=== PATIENT | male | born 1950 | race Caucasian/White ===

== ENCOUNTER → 2022-01-26 14:18 | Outpatient (BNVA) | payer OTHER, SELFPAY | PROVIDERS: PCP Internal Medicine; Visit Provider Urology | DX: N48.1 Balanitis (principal); R97.20 Elevated prostate specific antigen [PSA] | CPT/HCPCS: 99202 ==

== ENCOUNTER → 2022-04-26 09:48 | Outpatient (BNVA) | payer OTHER, SELFPAY | PROVIDERS: PCP Internal Medicine; Visit Provider Urology | DX: N40.1 Benign prostatic hyperplasia with lower urinary tract symptoms (principal); N13.8 Other obstructive and reflux uropathy; C61 Malignant neoplasm of prostate; N48.1 Balanitis; R97.20 Elevated prostate specific antigen [PSA]; N52.9 Male erectile dysfunction, unspecified | CPT/HCPCS: 51798; 99212 ==

== ENCOUNTER 2022-07-03 13:13 | Outpatient (REF) | payer OTHER, SELFPAY ==
[2022-07-03 15:32] LABS: PSA,Total (Free>4and<10) 63.65 ng/mL (0.00-4.00)
[2022-07-05 12:21] LABS: Free Prostate Spec Ag 5.2 ng/mL; Percent Free Prostate Spec Ag NOT CALCULATED % (calc) (>25); Prostate Specific Ag Total 57.5 ng/mL (< OR = 4.0)
== END 2022-07-03 13:14 | disposition home or self-care (01) ==
LOC: HO.LAB 13:13
PROVIDERS: Visit Provider Urology
DX: Z12.5 Encounter for screening for malignant neoplasm of prostate (principal); C61 Malignant neoplasm of prostate
CPT/HCPCS: 36415; 84153; 84154

== ENCOUNTER → 2022-07-10 10:57 | Outpatient (BNVA) | payer OTHER, SELFPAY | PROVIDERS: PCP Internal Medicine; Visit Provider Urology | DX: C61 Malignant neoplasm of prostate (principal); N48.1 Balanitis; N52.9 Male erectile dysfunction, unspecified | CPT/HCPCS: 99212 ==

== ENCOUNTER 2024-01-28 05:44 | Emergency (ER) | payer OTHER, SELFPAY ==
[2024-01-28] VITALS (7 sets, daily range): BP systolic 131–149; BP diastolic 71–82; PULSE 57–78; RESP 16–20; TEMP 36.4–37.1; O2SAT 98–99; BMI 30.8
--- NOTE | ~2024-01-28 | XR_ITS ---
EXAMINATION: XR ABDOMEN KUB CLINICAL INDICATION: No bowel movement COMPARISON: None available. TECHNIQUE: AP view of the abdomen. FINDINGS: No significant fecal retention nor air-fluid small bowel loops seen. Solid visceral outlines are obscured. Tiny calcification left mid abdomen possibly renal in location. Phleboliths. Mild lumbar dextroscoliosis and degenerative changes lower lumbar spine. Symphysis pubis sclerosis, asymmetric sclerosis superior pubic ramus and question mild expansion and increased trabecular pattern bilateral inferior and superior pubic rami. XR/XR KUB IMPRESSION: No radiographic evidence of obstruction. Patient scheduled for abdomen and pelvic CT. Bony findings in the evaluated at that time.
--- NOTE | ~2024-01-28 | CT_ITS ---
EXAMINATION: CT ABDOMEN AND PELVIS WITH CONTRAST CLINICAL INFORMATION: Abdominal pain, question obstruction COMPARISON: KUB earlier in the day TECHNIQUE: Multidetector volumetric images were obtained from the superior aspect of the liver through the pubic symphysis following administration 85 mL of Omnipaque 350 intravenous contrast. Sagittal and coronal reformatted images were obtained on the technologist's workstation. Oral contrast: Yes This CT examination was performed using dose optimization techniques as appropriate, variously including the following: *Automated exposure control *Adjustment of mA and/or kV according to patient size (this includes techniques or standardized protocols for targeted exams where dose is matched to indication/reason for exam; i.e. extremities or head) *Use of iterative reconstruction technique DLP: 671 mGy-cm FINDINGS: SENIOR APPLICATIONS ARCHITECT: Nonspecific bowel pattern. LUNG BASES: The visualized lung bases are unremarkable. LIVER, GALLBLADDER, AND BILIARY TREE: The liver is normal in size, shape, and attenuation. No focal hepatic lesion or biliary ductal dilatation is present. The gallbladder contains 2-3 mm hyperdensity adjacent to the wall, 3:19, possible polyp. No evidence of calcified gallstones, gallbladder wall thickening, or obvious pericholecystic inflammatory changes. PANCREAS: Unremarkable. SPLEEN: Unremarkable. ADRENAL GLANDS: Unremarkable. KIDNEYS AND URETERS: The kidneys are normal in size, shape, and attenuation. No hydronephrosis or hydroureter. 1.1 cm left lower pole renal cyst. 2 mm possible left lower pole renal calculus versus vascular calcification. No perinephric stranding. BLADDER: Moderately distended. Lobulated filling defects inferior aspect of the urinary bladder appear to be in continuity with calcification containing prostate. Superior bladder diverticulum. GASTROINTESTINAL TRACT: The esophagus, small hiatal moderately distended stomach. Fundal gastric wall thickening not excluded. Nonobstructive bowel pattern. Unremarkable terminal ileum. Cecum is distended containing contrast and fecal material. Appendix not seen. Redundant sigmoid colon. Limited evaluation of the rectum/anus without oral contrast transit. ABDOMINAL WALL: Umbilical and bilateral fat filled inguinal hernias. LYMPH NODES: Pathologically enlarged retroperitoneal lymph nodes, largest on the left measuring 3.1 cm, on the right, 0.9 cm. Pathologic lymphadenopathy extends into bilateral iliac regions, measuring 2.9 cm on the right and approximately 2.9 cm on the left. VASCULAR: Atherosclerotic calcifications nonaneurysmal aorta and iliac arteries. Unremarkable inferior vena cava. External iliac veins are patent and nondistended, common iliac veins are not well evaluated due to retroperitoneal adenopathy. Portal system. PELVIC VISCERA: Unremarkable. OSSEOUS STRUCTURES: Degenerative changes with multilevel spurring. Inferior endplate irregularity of T11 with disc space narrowing. Symphysis pubis sclerosis. Mixed lytic and sclerotic process primarily involving the iliac bones and left superior pubic ramus. The cortical margins are irregular, CC image 3:80 and 3:57. CT/CT abdomen pelvis w IV con IMPRESSION: Pathologic retroperitoneal lymphadenopathy. Mixed lucent and sclerotic bony findings in the bilateral iliac bones and left superior pubic ramus, possibly Paget's disease, but metastatic disease not excluded. Possible gallbladder polyp. Inferior bladder wall soft tissue density, may be indenting lobulated prostate but bladder lesion(s) not excluded. Left renal cyst and possible 2 to 3 mm nonobstructing left inferior pole renal calculus. No CT evidence of bowel obstruction as clinically questioned. Fleischner guidelines were followed.
--- NOTE | ~2024-01-28 | CT_ITS ---
EXAMINATION: CT cervical spine wo IV con, CT head/brain wo IV con CLINICAL INFORMATION: Reason for Exam paresthesias, possible cancer mets COMPARISON: CT abdomen pelvis 01/28/2024. Prostate MRI 03/15/2022 TECHNIQUE: Unenhanced CT of the head with multiple coronal and set her reformatted images; unenhanced CT of the cervical spine with multiple coronal and sagittal reformatted images. Intravenous Contrast: None administered This CT examination was performed using dose optimization techniques as appropriate, variously including the following: *Automated exposure control *Adjustment of mA and/or kV according to patient size (this includes techniques or standardized protocols for targeted exams where dose is matched to indication/reason for exam; i.e. extremities or head) *Use of iterative reconstruction technique DLP: 1134 mGy-cm FINDINGS: CT head: Moderate diffuse commensurate prominence of ventricles and sulci is noted. No intracranial hemorrhage, tumors or acute infarcts visualized. Minimal scattered subcortical and periventricular white matter patchy hypodensities are visualized. Segmental calcific atherosclerotic plaques are present in the cavernous portions of the internal carotid arteries and focal calcific plaques are present in the intradural segments of the vertebral arteries. The orbits and globes are normal in appearance. No significant opacification of the visualized paranasal sinuses, mastoid air cells and middle ear cavities. Making allowances for expected lucencies related to emissary veins and venous occlusions, no suspicious osseous lesions are noted. Residual IV contrast agent is noted as manifest by hyperdense blood pool. CT cervical spine: The left foramen is of the mandible is partially included in the image [id number] and demonstrates vague scattered areas of cortical dehiscence and heterogeneous trabecular rarefaction. (For example see series 11 image 144). No extraosseous soft tissue lesion is noted in this region. This region measures approximately 0.5 cm in maximum AP extent. No cervical fractures or acute appearing subluxations identified. C2-C3: Moderate left foraminal stenosis secondary to marked left facet hypertrophy. C3-C4: Marked left foraminal stenosis secondary to uncovertebral joint and left facet hypertrophic changes in the setting of a partially visualized broad-based disc and osteophyte complex. C4-C5: Marked right foraminal stenosis and moderate left foraminal stenosis secondary to 3 mm degenerative anterolisthesis the setting of marked vertebral disc space narrowing and partially visualized bilateral uncovertebral joint disc-osteophyte complexes. C5-C6: Moderate-marked left foraminal stenosis. Moderate central stenosis. Findings arise in the setting of a broad-based disc-osteophyte complex with left intraforaminal eccentricity in association with mild bilateral facet hypertrophic changes. C6-C7: Moderate-marked left foraminal stenosis, moderate central stenosis, moderate right foraminal stenosis. Findings are noted in the setting of a partially visualized broad-based disc-osteophyte complex and asymmetric prominence of osteophytosis of the left uncovertebral joint. C7-T1: No gross central or foraminal stenoses. CT/CT cervical spine wo IV con IMPRESSION: CT HEAD: 1. No acute intracranial abnormalities. 2. Minimal white matter chronic small vessel ischemic changes. 3. No evidence of metastatic disease. CT CERVICAL SPINE: 1. No acute abnormalities. 2. Indeterminate 5 mm cortical and medullary lucency along the lateral aspect of the left mandibular ramus. This finding is too small to specifically characterize but could represent a small metastatic focus. (For example see series 11 image 144). Given the suspicion of osseous metastatic disease noted on the comparison CT of abdomen pelvis, consider further evaluation with whole body skeletal scintigraphy. Elsewhere within the cervical spine, no findings suspicious for skeletal metastatic disease. 3. Advanced multilevel chronic spondylosis of the cervical spine as detailed above.
--- NOTE | 2024-01-28 06:57 | ED.GENADULT ---
HPI - General Adult General Chief complaint: Abdominal Pain Stated complaint: unable to defecate, sent by [facility] admin Time Seen by Provider: 01/28/24 06:36 Source: patient and other (significant other) Mode of arrival: ambulatory Limitations: no limitations History of Present Illness ED Provider: Indy Rose PA-C HPI narrative: Patient is a 73 year old assigned male at with a history of prostate cancer, for which he has had no treatment, presenting to the emergency department today with abdominal pain, nausea, and constipation. Patient states that over the last week he has not been able to have a bowel movement. Patient states that he is now having diffuse abdominal pain and nausea. Patient denies any dizziness, lightheadedness, vomiting, fever, chills, blurry vision, double vision, loss of vision, chest pain, difficulty breathing, shortness of breath, back pain, night sweats, pain with urination, increased urinary frequency, increased urinary urgency, blood in his urine or stool, syncope or a near syncopal episode, recent trauma or falls, bowel incontinence, bladder incontinence, bladder retention, or any other complaints at this time. Onset (ago): week(s) (1) Location: abdomen Radiation: non-radiation Severity: mild Severity scale (1-10): 4 Quality: aching and dull Pain Consistency: constant Relieving factors: none Exacerbating factors: none Associated symptoms: nausea/vomiting Treatments prior to arrival: none Related Data Home Medications ?Medication ?Instructions ?Recorded ?Confirmed amoxicillin 500 mg capsule 500 mg PO TID 01/26/22 07/10/22 atorvastatin 10 mg tablet 10 mg PO DAILY 01/26/22 07/10/22 metronidazole 0.75 % topical gel 1 appl topical BEDTIME 01/26/22 07/10/22 hydroxyzine pamoate 25 mg capsule 25 mg PO BID 07/09/22 07/10/22 Previous Rx's ?Medication ?Instructions ?Recorded mupirocin 2 % ointment topical kit 1 appl topical DAILY 21 days #1 ea 01/26/22 betamethasone dipropionate 0.05 % 1 appl topical BID #45 grams 01/30/22 topical ointment finasteride 5 mg tablet 5 mg PO DAILY 90 days #90 tabs 04/26/22 sildenafil 100 mg tablet 100 mg PO DAILY PRN sexual 04/26/22 activity 90 days #12 tabs bicalutamide 50 mg tablet 50 mg PO DAILY 90 days #90 tabs 07/10/22 naproxen 500 mg tablet (Naprosyn) 500 mg PO Q12H PRN pain 30 days 07/10/22 #60 tabs tacrolimus 0.1 % topical ointment 1 appl topical DAILY 28 days #30 07/10/22 grams Allergies Allergy/AdvReac Type Severity Reaction Status Date / Time No Known Allergies Allergy Verified 01/28/24 05:54 Review of Systems Constitutional: Constitutional: Reports no additional constitutional complaints, Denies chills, Denies fever(s) and Denies night sweats Eyes: Eyes: Reports no additional eye complaints, Denies blurry vision, Denies change in vision, Denies diplopia, Denies eye discharge, Denies loss of vision and Denies eye pain ENT: Denies dizziness Cardiovascular: Cardiovascular: Reports no additional cardiovascular complaints, Denies chest pain, Denies lightheadedness, Denies Loss of Consciousness and Denies dyspnea Respiratory: Respiratory: Reports no additional respiratory complaints and Denies dyspnea Gastrointestinal: Gastrointestinal: Reports no additional gastrointestinal complaints, Reports abdominal pain, Denies melena, Denies hematochezia, Reports change in bowel habits, Denies change in stool character, Reports constipation, Reports nausea and Denies vomiting Genitourinary: Genitourinary: Reports no additional male genitourinary complaints, Denies hematuria, Denies oliguria, Denies difficulty urinating, Denies dysuria, Denies urinary frequency, Denies urinary hesitancy, Denies urinary incontinence and Denies urinary urgency Musculoskeletal: Musculoskeletal: Reports no additional musculoskeletal complaints, Denies numbness and Denies tingling Neurologic: Denies dizziness, Denies loss of vision, Denies numbness and Denies tingling Psychiatric: Psychiatric: Reports no additional psychiatric complaints Endocrine: Endocrine: Reports no additional endocrine complaints Hematologic/Lymphatic: Hematologic/Lymphatic: Reports no additional hematologic/lymphatic complaints Allergic/Immunologic: Allergic/Immunologic: Reports no additional allergic/immunologic complaints PMFSH Past Medical History Attestation statement: The following information was validated with the patient. Source: old records reviewed and nursing notes reviewed Medical History Elevated PSA Scrotal abscess Balanitis Physical Exam ED Vital Signs: Vital Signs - 24 hr 01/28/24 05:53 01/28/24 08:00 01/28/24 10:00 Temperature 97.7 F 97.6 F 98.8 F Pulse Rate 78 64 57 Respiratory Rate 16 16 16 Blood Pressure 149/82 H 132/75 131/71 Pulse Oximetry 98 98 99 Oxygen Delivery Method Room Air Room Air Room Air 01/28/24 12:49 01/28/24 14:00 Temperature 97.6 F 97.6 F Pulse Rate 63 61 Respiratory Rate 16 16 Blood Pressure 143/78 H 147/76 H Pulse Oximetry 98 98 Oxygen Delivery Method Room Air Room Air BMI result Body Mass Index 30.8 Const General: cooperative, no acute distress, alert and awake Nutritional Appearance: well nourished Orientation/consciousness: patient oriented x3 Limitations: no limitations HENMT Head: Yes normal to inspection and Yes atraumatic Ears: hearing grossly normal bilaterally and external ears normal General nose exam: Normal external nose present, no nasal discharge noted and no epistaxis Face and sinus: Yes normal facial exam, No abrasion and No laceration Mouth: Normal oral and palatal mucosa present, no drooling and no muffled voice Eyes General: appearance normal, both eyes and all related structures Periorbital: periorbital findings normal Eyelids: Yes eyelids normal Conjunctivae: conjunctivae normal Pupils: Equal, round and reactive pupils present EOM: EOMs intact bilaterally Neck Neck: Yes normal visual inspection, Yes full ROM and Yes no lymphadenopathy Chest Chest palpation & inspection: normal inspection of the chest Resp Effort & Inspection: normal respiratory effort and able to speak in complete sentences GI Inspection: Yes normal to inspection Palpation (GI): Soft to palpation, Firmness to palpation present (GI) (mildly), Tenderness to palpation present (GI) (diffuse), no guarding and not rigid Neuro General: patient oriented x3 and moves all extremities Cranial nerves: Yes Equal, round and reactive pupils present Cognition (Neuro): normal cognition Motor exam (neuro): 5/5 motor strength present throughout Sensory Exam: Normal double simultaneous stimulation for sensation Coordination: [id number] test normal Extrem General: Yes normal to inspection, Yes full ROM and Yes capillary refill normal Psych Appearance: grossly normal Mental Status: mental status grossly normal Affect: normal affect Attitude: cooperative Thought process: Normal thought process present Thought content: Normal thought content present Insight: Good insight present (Psych) Medications Administered Discontinued Medications Generic Name Dose Route Start Last Admin Trade Name Harper PRN Reason Stop Dose Admin Barium Sulfate 900 ml 01/28/24 09:24 01/28/24 09:25 Barium Sulfate Oral (Mocha) 450 Ml Oral.Susp PO 01/28/24 09:25 900 ml ONCE ONE Administration Iohexol 100 ml 01/28/24 09:31 01/28/24 09:31 Iohexol 350 Mg/Ml 100 Ml Infus..Btl IV 01/28/24 09:32 85 ml ONCE ONE Administration Ketorolac Tromethamine 15 mg 01/28/24 14:34 01/28/24 14:48 Ketorolac Tromethamine 15 Mg/Ml Vial IVPUSH 01/28/24 14:35 15 mg ONCE ONE Administration Morphine Sulfate 2 mg 01/28/24 14:34 01/28/24 14:48 Morphine Sulfate 2 Mg/Ml Cartridge IVPUSH 01/28/24 14:35 2 mg ONCE ONE Administration Protocol Ondansetron HCl 4 mg 01/28/24 14:34 01/28/24 14:48 Ondansetron Hcl 4 Mg/2 Ml Vial IVPUSH 01/28/24 14:35 4 mg ONCE ONE Administration Medical Decision Making Medical Decision Making MDM Narrative: Patient is a 73 year old assigned male at with a history of prostate cancer for which he has not received any treatment, presenting to the emergency department today with abdominal pain, nausea, and perceived constipation. Patient's physical exam was as noted in the physical exam portion of this note. Patient's blood work was unremarkable. Patient's urine showed no acute process. Patient's EKG was unremarkable. Patient's KUB x-ray showed no acute process. Patient's CT abdomen/pelvis with PO and IV contrast showed a possible inferior bladder wall bladder lesion vs. 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 I explained my physical exam findings as well as all test results to the patient and the patient's significant other. I answered all questions asked by the patient and the patient's significant other. Patient initially stated that he didn't know about his prostate cancer. However, when reviewing previous notes from the urology group back in 2021, it was noted the patient was made aware of his cancer and refused to do any further testing or treatment at that time. When I asked the patient about this, he admitted that he was scared of getting a biopsy and so he ignored it. Patient's outside records further reflect the patient had been referred to a urologist multiple times and no called / no showed every appointment. The patient proceeded to state that he has been having paresthesias to his left lower lip and would like that to be evaluated. CT of the head and c-spine showed an indeterminate 5mm cortical and medullary lucency along the lateral aspect of the left mandibular ramus that could represent a metastatic focus. I explained these findings to the patient and the patient's significant other. Patient was adamant that he was constipated and would like an enema. I explained to the patient and the patient's significant other that his abdominal pain may be secondary to worsening prostate cancer and not constipation. The patient stated that he would like an enema anyway. Patient was given IV pain medication and an enema. Case management consulted on this case to [facility] and possible [facility] care given the patient's refusal to pursue definitive care for his prostate cancer. I attempted to contact the patient's PCP by phone, however, the clinic would not accept my call. I stressed the importance of the patient taking his medication as prescribed. I stressed the importance of the patient following up with his primary care provider and a urologist. I stressed the importance of the patient returning to the emergency department immediately if his symptoms were to worsen or if he were to develop any dizziness, shortness of breath, difficulty breathing, chest pain, blurry vision, loss of vision, nausea, vomiting, abdominal pain, fever, chills, back pain, or any other complaints. Patient and the patient's significant other verbalized agreement and understanding with this treatment plan and discharge. Differential Diagnosis Differential Diagnoses: The differential diagnosis associated with the presentation includes Metastatic prostate cancer Paresthesias Abdominal pain Constipation Bowel obstruction Admission/Observation Consideration of admission/observation: Escalation of care including admission/observation considered Patient would have been admitted to the hospital had his work up had any findings where hospital admission was appropriate and his clinical presentation warranted hospital admission. Lab Data [facility] Lab Attestation statement: I reviewed the patient's lab results. My interpretation of these results are in the [facility] Rationale portion of this note. 01/28/24 07:21 01/28/24 07:21 Labs: Lab Results 01/28/24 01/28/24 Range/Units 06:56 07:21 WBC 5.6 (4.8-10.8) X10*3/uL RBC 4.36 L (4.60-5.80) X10*6/uL Hgb 13.9 L (14.0-18.0) g/dl Hct 39.5 L (42.0-52.0) % MCV 90.6 (80.0-98.0) fL MCH 31.9 (27.0-33.0) pg MCHC 35.2 (31.0-36.0) g/dl RDW 12.6 (11.0-16.0) % Plt Count 168 (160-400) X10*3/uL MPV 8.5 L (9.4-12.4) fL Immature Gran % (Auto) 0.4 (0.0-0.4) % Neut % (Auto) 76.8 H (45-73) % Lymph % (Auto) 14.2 L (20-40) % [place] % (Auto) 6.5 (2-11) % Eos % (Auto) 1.6 (0-4) % Baso % (Auto) 0.5 (0-2) % Lymph # (Auto) 0.8 L (1.2-4.9) X10*3/uL [place] # (Auto) 0.4 (0.1-1.2) X10*3/uL Eos # (Auto) 0.1 (0.0-0.4) X10*3/uL Baso # (Auto) 0.0 (0.0-0.2) X10*3/uL Abs Immat Gran (auto) 0.02 (0.00-0.03) X10*3/uL Absolute Neuts (auto) 4.3 (2.0-8.3) x10*3/uL Absolute Nucleated RBC 0.000 (0.0-0.012) X10*3/uL Nucleated RBC % (auto) 0.0 (0.0-0.2) /100WBC Sodium 141 (135-145) mmol/L Potassium 4.6 (3.3-5.1) mmol/L Chloride 105 (96-108) mmol/L Carbon Dioxide 28 (22-29) mmol/L Anion Gap 13 (12-20) BUN 23 H (9-16) mg/dL Creatinine 0.85 (0.5-1.4) mg/dL Estim Creat Clear Calc 101.6 Estimated GFR > 60 Random Glucose 109 (60-115) mg/dL Calcium 9.7 (8.4-10.2) mg/dL Magnesium 2.2 (1.6-2.6) mg/dL Total Bilirubin 0.5 (0.0-1.0) mg/dL AST 15 (5-37) U/L ALT 10 (0-40) U/L Alkaline Phosphatase 106 (39-117) U/L Troponin I High Sens 7.2 (<3.5-35.0) ng/L Total Protein 6.9 (6.5-8.0) g/dL Albumin 3.8 (3.5-5.0) g/dL Urine Color Yellow Urine Appearance Clear Urine pH 6.0 (5.0-9.0) Ur Specific [place] 1.025 (1.005-1.025) Urine Protein Negative (Neg-Trace) mg/dL Urine Glucose (UA) Negative (Negative) mg/dL Urine Ketones Trace (Negative) mg/dL Urine Blood Negative (Negative) Urine Nitrite Negative (Negative) Ur Leukocyte Esterase Negative (Negative) Influenza Type A (PCR) NEGATIVE (Negative) Influenza Type B (PCR) NEGATIVE (Negative) RSV RNA Qual (PCR) NEGATIVE (Negative) SARS-CoV-2 RNA (RT-PCR) NEGATIVE (Negative) Independent Interpretation I performed an independent interpretation of an: EKG, Plain X-Ray and CT Scan Interpretation: My interpretation is in agreement with the radiologist's impression of these imaging studies. EXAMINATION: XR ABDOMEN KUB CLINICAL INDICATION: No bowel movement COMPARISON: None available. TECHNIQUE: AP view of the abdomen. FINDINGS: No significant fecal retention nor air-fluid small bowel loops seen. Solid visceral outlines are obscured. Tiny calcification left mid abdomen possibly renal in location. Phleboliths. Mild lumbar dextroscoliosis and degenerative changes lower lumbar spine. Symphysis pubis sclerosis, asymmetric sclerosis superior pubic ramus and question mild expansion and increased trabecular pattern bilateral inferior and superior pubic rami. XR/XR KUB IMPRESSION: No radiographic evidence of obstruction. Patient scheduled for abdomen and pelvic CT. Bony findings in the evaluated at that time. Dictated By: Gi Palencia MD Signed By: Electronically signed by Gi Palencia MD 01/28/24 0753 EXAMINATION: CT ABDOMEN AND PELVIS WITH CONTRAST CLINICAL INFORMATION: Abdominal pain, question obstruction COMPARISON: KUB earlier in the day TECHNIQUE: Multidetector volumetric images were obtained from the superior aspect of the liver through the pubic symphysis following administration 85 mL of Omnipaque 350 intravenous contrast. Sagittal and coronal reformatted images were obtained on the technologist's workstation. Oral contrast: Yes This CT examination was performed using dose optimization techniques as appropriate, variously including the following: *Automated exposure control *Adjustment of mA and/or kV according to patient size (this includes techniques or standardized protocols for targeted exams where dose is matched to indication/reason for exam; i.e. 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 LUNG BASES: The visualized lung bases are unremarkable. LIVER, GALLBLADDER, AND BILIARY TREE: The liver is normal in size, shape, and attenuation. No focal hepatic lesion or biliary ductal dilatation is present. The gallbladder contains 2-3 mm hyperdensity adjacent to the wall, 3:19, possible polyp. No evidence of calcified gallstones, gallbladder wall thickening, or obvious pericholecystic inflammatory changes. PANCREAS: Unremarkable. SPLEEN: Unremarkable. ADRENAL GLANDS: Unremarkable. KIDNEYS AND URETERS: The kidneys are normal in size, shape, and attenuation. No hydronephrosis or hydroureter. 1.1 cm left lower pole renal cyst. 2 mm possible left lower pole renal calculus versus vascular calcification. No perinephric stranding. BLADDER: Moderately distended. Lobulated filling defects inferior aspect of the urinary bladder appear to be in continuity with calcification containing prostate. Superior bladder diverticulum. GASTROINTESTINAL TRACT: The esophagus, small hiatal moderately distended stomach. Fundal gastric wall thickening not excluded. Nonobstructive bowel pattern. Unremarkable terminal ileum. Cecum is distended containing contrast and fecal material. Appendix not seen. Redundant sigmoid colon. Limited evaluation of the rectum/anus without oral contrast transit. ABDOMINAL WALL: Umbilical and bilateral fat filled inguinal hernias. LYMPH NODES: Pathologically enlarged retroperitoneal lymph nodes, largest on the left measuring 3.1 cm, on the right, 0.9 cm. Pathologic lymphadenopathy extends into bilateral iliac regions, measuring 2.9 cm on the right and approximately 2.9 cm on the left. VASCULAR: Atherosclerotic calcifications nonaneurysmal aorta and iliac arteries. Unremarkable inferior vena cava. External iliac veins are patent and nondistended, common iliac veins are not well evaluated due to retroperitoneal adenopathy. Portal system. PELVIC VISCERA: Unremarkable. OSSEOUS STRUCTURES: Degenerative changes with multilevel spurring. Inferior endplate irregularity of T11 with disc space narrowing. Symphysis pubis sclerosis. Mixed lytic and sclerotic process primarily involving the iliac bones and left superior pubic ramus. The cortical margins are irregular, CC image 3:80 and 3:57. CT/CT abdomen pelvis w IV con IMPRESSION: Pathologic retroperitoneal lymphadenopathy. Mixed lucent and sclerotic bony findings in the bilateral iliac bones and left superior pubic ramus, possibly Paget's disease, but metastatic disease not excluded. Possible gallbladder polyp. Inferior bladder wall soft tissue density, may be indenting lobulated prostate but bladder lesion(s) not excluded. Left renal cyst and possible 2 to 3 mm nonobstructing left inferior pole renal calculus. No CT evidence of bowel obstruction as clinically questioned. Fleischner guidelines were followed. Dictated By: Gi Palencia MD Signed By: Electronically signed by Gi Palencia MD 01/28/24 1102 EXAMINATION: CT cervical spine wo IV con, CT head/brain wo IV con CLINICAL INFORMATION: Reason for Exam paresthesias, possible cancer mets COMPARISON: CT abdomen pelvis 01/28/2024. Prostate MRI 03/15/2022 TECHNIQUE: Unenhanced CT of the head with multiple coronal and set her reformatted images; unenhanced CT of the cervical spine with multiple coronal and sagittal reformatted images. Intravenous Contrast: None administered This CT examination was performed using dose optimization techniques as appropriate, variously including the following: *Automated exposure control *Adjustment of mA and/or kV according to patient size (this includes techniques or standardized protocols for targeted exams where dose is matched to indication/reason for exam; i.e. extremities or head) *Use of iterative reconstruction technique DLP: 1134 mGy-cm FINDINGS: CT head: Moderate diffuse commensurate prominence of ventricles and sulci is noted. No intracranial hemorrhage, tumors or acute infarcts visualized. Minimal scattered subcortical and periventricular white matter patchy hypodensities are visualized. Segmental calcific atherosclerotic plaques are present in the cavernous portions of the internal carotid arteries and focal calcific plaques are present in the intradural segments of the vertebral arteries. The orbits and globes are normal in appearance. No significant opacification of the visualized paranasal sinuses, mastoid air cells and middle ear cavities. Making allowances for expected lucencies related to emissary veins and venous occlusions, no suspicious osseous lesions are noted. Residual IV contrast agent is noted as manifest by hyperdense blood pool. CT cervical spine: The left foramen is of the mandible is partially included in the image [id number] and demonstrates vague scattered areas of cortical dehiscence and heterogeneous trabecular rarefaction. (For example see series 11 image 144). No extraosseous soft tissue lesion is noted in this region. This region measures approximately 0.5 cm in maximum AP extent. No cervical fractures or acute appearing subluxations identified. C2-C3: Moderate left foraminal stenosis secondary to marked left facet hypertrophy. C3-C4: Marked left foraminal stenosis secondary to uncovertebral joint and left facet hypertrophic changes in the setting of a partially visualized broad-based disc and osteophyte complex. C4-C5: Marked right foraminal stenosis and moderate left foraminal stenosis secondary to 3 mm degenerative anterolisthesis the setting of marked vertebral disc space narrowing and partially visualized bilateral uncovertebral joint disc-osteophyte complexes. C5-C6: Moderate-marked left foraminal stenosis. Moderate central stenosis. Findings arise in the setting of a broad-based disc-osteophyte complex with left intraforaminal eccentricity in association with mild bilateral facet hypertrophic changes. C6-C7: Moderate-marked left foraminal stenosis, moderate central stenosis, moderate right foraminal stenosis. Findings are noted in the setting of a partially visualized broad-based disc-osteophyte complex and asymmetric prominence of osteophytosis of the left uncovertebral joint. C7-T1: No gross central or foraminal stenoses. CT/CT cervical spine wo IV con IMPRESSION: CT HEAD: 1. No acute intracranial abnormalities. 2. Minimal white matter chronic small vessel ischemic changes. 3. No evidence of metastatic disease. CT CERVICAL SPINE: 1. No acute abnormalities. 2. Indeterminate 5 mm cortical and medullary lucency along the lateral aspect of the left mandibular ramus. This finding is too small to specifically characterize but could represent a small metastatic focus. (For example see series 11 image 144). Given the suspicion of osseous metastatic disease noted on the comparison CT of abdomen pelvis, consider further evaluation with whole body skeletal scintigraphy. Elsewhere within the cervical spine, no findings suspicious for skeletal metastatic disease. 3. Advanced multilevel chronic spondylosis of the cervical spine as detailed above. Dictated By: Power Escamilla MD Signed By: Electronically signed by Power Escamilla MD 01/28/24 8197 Vent. Rate: 061 BPM Atrial Rate: 061 BPM P-R Int: 206 ms QRS Dur: 136 ms QT Int: 436 ms P-R-T Axes: -05 -43 059 degrees QTc Int: 438 ms Normal sinus rhythm Left axis deviation Non-specific intra-ventricular conduction block Inferior infarct , age undetermined Cannot rule out Anterior infarct , age undetermined Abnormal ECG No previous ECGs available Electronically Signed By:Ta Peraza Dictated By: Ta Peraza MD Signed By: Electronically signed by Ta Peraza MD 01/28/24 0959 Radiology Impression Discussion of test interpretation with radiology: I have reviewed the radiologist's reading. Independent Historian Clinical information obtained from an independent historian. History obtained from or confirmed by: Other (patient's significant other provided additional history and confirmed the history provided by the patient.) Chronic Conditions Patient?s care impacted by: Cancer (untreated metastatic prostate cancer) Critical Care Time Critical Care Time Critical Care Time: Yes Total Critical Care Time: 90 Attestation: I spent 90 minutes of Critical Care Time with this patient. This does not include time spent on separately reported billable procedures. Discharge Plan Discharge Clinical Impression: Prostate cancer, Abdominal pain Patient Disposition: Home, Self-Care Instructions: Prostate Cancer (DC), Abdominal Pain (ED) Additional Instructions: Follow up with your primary care provider and a urologist. Return to the emergency department immediately if your symptoms worsen or if you develop any dizziness, shortness of breath, difficulty breathing, chest pain, blurry vision, loss of vision, nausea, vomiting, abdominal pain, fever, chills, back pain, or any other complaints. Prescriptions: No Action betamethasone dipropionate 0.05 % ointment 1 appl topical BID Qty: 45 0RF Rx Instructions: Apply thin coat two times a day finasteride 5 mg tablet 5 mg PO DAILY 90 Days Qty: 90 1RF sildenafil 100 mg tablet 100 mg PO DAILY PRN (Reason: sexual activity) 90 Days Qty: 12 1RF Rx Instructions: administer 60 minutes before intended activity bicalutamide 50 mg tablet 50 mg PO DAILY 90 Days Qty: 90 1RF metronidazole 0.75 % gel 1 appl topical BEDTIME atorvastatin 10 mg tablet 10 mg PO DAILY amoxicillin 500 mg capsule 500 mg PO TID mupirocin 2 % ointment kit 1 appl topical DAILY 21 Days Qty: 1 0RF hydroxyzine pamoate 25 mg capsule 25 mg PO BID naproxen [Naprosyn] 500 mg tablet 500 mg PO Q12H PRN (Reason: pain) 30 Days Qty: 60 0RF tacrolimus 0.1 % ointment 1 appl topical DAILY 28 Days Qty: 30 0RF Rx Instructions: Thin coat to penis daily for 4 weeks Referrals: [facility] [place] [facility] [Provider Group] (Call to establish and follow up with Dr. Bhakta, the Urologist. ) Laura Marin MD [Primary Care Provider] - Interventions: ED Discharge Assessment Last Done: 01/28/24 16:45 Discharge Date/Time: 01/28/24 16:40 Print Language: Botswanan
[2024-01-28 07:01] LABS: Appearance Urine Clear; Color Urine Yellow; Glucose Urine UA Negative (Negative); Leukocyte Esterase Urine Negative (Negative); Nitrite Urine Negative (Negative); Specific Gravity - Urine 1.025 (1.005-1.025); Urine Blood Negative (Negative); Urine Ketones Trace mg/dL (Negative); Urine Protein Negative (Neg-Trace)
--- NOTE | 2024-01-28 07:07 | ECG_ITS ---
Test Reason : EPIGASTRIC PAIN Blood Pressure : / mmHG Vent. Rate : 061 BPM Atrial Rate : 061 BPM P-R Int : 206 ms QRS Dur : 136 ms QT Int : 436 ms P-R-T Axes : -05 -43 059 degrees QTc Int : 438 ms Normal sinus rhythm Left axis deviation Non-specific intra-ventricular conduction block Inferior infarct , age undetermined Cannot rule out Anterior infarct , age undetermined Abnormal ECG No previous ECGs available Referred By: Indy Rose Electronically Signed By:Ta Peraza
[2024-01-28 07:24] LABS: MANUAL DIFF FLAG NO
[2024-01-28 07:32] LABS: Basophils Percent Auto 0.5 % (0-2); Eosinophils Absolute Auto 0.1 X10*3/uL (0.0-0.4); Eosinophils Percent Auto 1.6 % (0-4); Hematocrit 39.5 % (42.0-52.0); Hemoglobin 13.9 g/dl (14.0-18.0); Imm Gran Abs Auto 0.02 X10*3/uL (0.00-0.03); Imm Gran Pct Auto 0.4 % (0.0-0.4); Lymphocytes Absolute Auto 0.8 X10*3/uL (1.2-4.9); Lymphocytes Percent Auto 14.2 % (20-40); Mean Corpuscular HGB Conc 35.2 g/dl (31.0-36.0); Mean Corpuscular Hemoglobin 31.9 pg (27.0-33.0); Mean Corpuscular Volume 90.6 fL (80.0-98.0); Mean Platelet Volume 8.5 fL (9.4-12.4); Monocytes Absolute Auto 0.4 X10*3/uL (0.1-1.2); Monocytes Percent Auto 6.5 % (2-11); Neutrophils Absolute Auto 4.3 x10*3/uL (2.0-8.3); Neutrophils Percent Auto 76.8 % (45-73); Platelet Count 168 X10*3/uL (160-400); Red Blood Count 4.36 X10*6/uL (4.60-5.80); Red Cell Distribution Width 12.6 % (11.0-16.0); White Blood Count 5.6 X10*3/uL (4.8-10.8)
[2024-01-28 07:51] LABS: Troponin-I High Sensitivity 7.2 ng/L (<3.5-35.0)
[2024-01-28 07:54] LABS: Alanine Aminotransferase 10 U/L (0-40); Albumin Level 3.8 g/dL (3.5-5.0); Alkaline Phosphatase 106 U/L (39-117); Anion Gap 13 (12-20); Aspartate Amino Transferase 15 U/L (5-37); Bilirubin Total 0.5 mg/dL (0.0-1.0); Blood Urea Nitrogen 23 mg/dL (9-16); Calcium 9.7 mg/dL (8.4-10.2); Carbon Dioxide 28 mmol/L (22-29); Chloride 105 mmol/L (96-108); Creatinine Clr Calc Pharmacy 101.6; Estimated Glomerular Filt Rate > 60; Glucose Random 109 mg/dL (60-115); Magnesium 2.2 mg/dL (1.6-2.6); Potassium 4.6 mmol/L (3.3-5.1); Sodium 141 mmol/L (135-145); Total Protein 6.9 g/dL (6.5-8.0)
[2024-01-28 08:02] LABS: Influenza A PCR NEGATIVE (Negative); Influenza B PCR NEGATIVE (Negative); Resp Syncy Virus RNA Qual PCR NEGATIVE (Negative); SARS COV2 PCR INHOUSE NEGATIVE (Negative)
[2024-01-28] MEDS: Barium Sulfate Oral (Mocha) 450 ML ORAL.SUSP 900 ML PO (09:25)
[2024-01-28] MEDS: iohexoL 350 MG/ML 100 ML INFUS..BTL IV (09:31)
[2024-01-28] MEDS: Morphine Sulfate 2 MG/ML CARTRIDGE IVPUSH (14:48)
[2024-01-28] MEDS: ondansetron HCL 4 MG/2 ML VIAL IVPUSH (14:48)
[2024-01-28] MEDS: Ketorolac Tromethamine 15 MG/ML VIAL IVPUSH (14:48)
--- NOTE | 2024-01-28 15:20 | MHC.CM.ED ---
Received case management consult from Indy ARRIAGA. Patient came to the ER due to constipation. Work up did not show constipation. Patricia indicate prostate cancer. This issue was discussed with patient by Dr Miramontes in June of 2022. Patient declined further treatment or testing at that time and wanted to [facility]. T/W spoke with Christine [facility] transitions of care RN. Prostate cancer issues have been discussed with [facility] provided. Patient has been referred to 4 different urologists and have been fired by their offices. Met with patient and sig other, Alison, to see if patient was interested in any home care services. Patient does not feel he needs home care. He does acknowledge that he needs to follow up with the oncologist. T/W attempted to educate patient about the importance of following up with appointments and not keeping appointments with urology. Patient became irate and stated I went to different urologist for different reasons! Patient stated he wasn't fired from [facility], but that he was fired from [facility] dermatology because his [facility] provided was worried that his penis was red but that doctor doesn't know what they're doing. T/W attempted to provide some emotional support and guide conversation towards follow up appointments and testing. Patient's volume of his voice became higher and patient yelled You're not a doctor. You don't know anything. Get the doctor. Marilu Wray RN and Indy ARRIAGA made to bedside to help diffuse patient. T/W continued to speak with patient's sig other, Alison. Alison states patient was made aware of prostate cancer diagnosis since Dr Miramontes's office visit. Patient has been stubborn about urology and doctor follow up because he is afraid to have prostate biopsy performed. Alison has also tried to have patient's daughter encourage patient to go to the doctor without success. Ultimately patient will need oncology follow up with PET scan. [facility] transition of care nurse will be made aware. Alison will transport patient home. Continue to monitor for d/c needs.
== END 2024-01-28 16:40 | disposition home or self-care (01) ==
PROVIDERS: Student in an Organized Health Care Education/Training Program; Emergency Provider Emergency Medicine; PCP Internal Medicine; Referring Provider Physician Assistant Medical
DX: R10.9 Unspecified abdominal pain (principal); R11.0 Nausea; K59.00 Constipation, unspecified; R20.2 Paresthesia of skin; C61 Malignant neoplasm of prostate; Z03.818 Encounter for observation for suspected exposure to other biological agents ruled out
CPT/HCPCS: 0241U; 70450; 72125; 74018; 74177; 80053; 81003; 83735; 84484; 85025; 93005; 96374; 96375; 99284; 99285; J1885; J2270; J2405; Q9967

== ENCOUNTER → 2024-01-28 07:07 | Outpatient (BNV) | payer OTHER, SELFPAY | PROVIDERS: Emergency Provider Emergency Medicine; PCP Internal Medicine; Visit Provider Internal Medicine Cardiovascular Disease | DX: R94.31 Abnormal electrocardiogram [ECG] [EKG] (principal) | CPT/HCPCS: 93010 ==

== ENCOUNTER 2024-03-09 08:27 | Outpatient (AMB) | payer OTHER, SELFPAY ==
--- NOTE | 2024-03-09 08:28 | A.OFFVIS_ITS ---
Intake Visit Reasons: Prostate Ca/PVR(Last seen Dr Srivastava) Intake Note: Patient is present for PVR/CA Prostate Urology Medication:currently not taking Antibiotic Allergy:none Blood Thinner:none Todays PVR:0ml Associate Entertainment Editor Required: No Allergies No Known Allergies Allergy (Verified 03/09/24 08:32) HPI Comments Details: 03/09/24--Luis Armando is a 73 year old male who is here for evaluation: Pt in denial of diagnosis of prostate cancer as he states not conclusively diagnosed. He has stopped prostate meds, c/o's of back pain, and jaw pain, was in ED on 01/28/24--I reviewed CTABD/Pelvis--lymph adenapathy, and lytic lesions. Will get bone scan and PSA. He c/o's of penile redness. Will order lotrisone cream. Exam: Prostate - hard nodules, penile glans, erythermatous changes noted Review of chart: 07/10/22--Luis Armando is a pleasant male. He is patient of Dr. Dmoenic Montero. 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 At this point not interested in further diagnosis all therapy Confirmed that finasteride and [facility]icalutamide [facility] Appears to have injured knee Requesting pain medication Naprosyn prescription provided Zoon balanitis unresolved with topical steroids Trial tacrolimus ointment Prostate cancer---At this point he would not like to make a further appointment until checks with [facility] doctor 01/28 MRI with PI-RADS 5 extensive disease right base with local invasion--PSA 06/30 62 Erectile dysfunction-Sildenafil 100 mg Elevated PSA-Followed with Urology Group PSA 02/24 14, 04/27 22, 07/28 19, 11/27 28 Offered biopsy on multiple occasions ISAIAH with firm right base Zoon Balanitis Uncircumcised Non responsive to topical steroid 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 miss [facility] Medical History Elevated PSA Scrotal abscess Balanitis Review of Systems Const All systems reviewed & are unremarkable except as noted in HPI and below Reports no additional complaints Eyes Reports no additional complaints ENT Reports no additional complaints Card Reports no additional complaints Resp Reports no additional complaints GI Reports no additional complaints Reports as per HPI Musc Reports no additional complaints Skin/Breast Reports system reviewed and no additional complaints, except as documented Neuro Reports no additional complaints Psych Reports no additional complaints Endo Reports no additional complaints Magnus/Lymph Reports no additional complaints Aller/Immun Reports no additional complaints Results AMB Urinalysis, Automated UA Leukoctes 70 Pal/uL Last Edit by JULIO CESAR Garzon on 03/09/24 08:44 UA Nitrite Negative Last Edit by JULIO CESAR Garzon on 03/09/24 08:44 UA Urobilinogen 0.2 mg/dL Last Edit by Barbie De La Cruz CCM on 03/09/24 08:4 4 UA Protein 15 mg/dL Last Edit by JULIO CESAR Garzon on 03/09/24 08:44 UA pH 6.0 Last Edit by Barbie De La Cruz CCM on 03/09/24 08:44 UA Blood 200 King/uL Last Edit by Barbie De La Cruz CCM on 03/09/24 08:44 UA Specific [place] 10.25 Last Edit by Barbie De La Cruz [facility] on 03/09/24 08: 44 UA Ketone Positive Last Edit by Barbie De La Cruz CCM on 03/09/24 08:44 UA Bilirubin 0 mg/dL Last Edit by Barbie De La Cruz [facility] on 03/09/24 08:44 UA Glucose 0 mg/dL Last Edit by Barbie De La Cruz [facility] on 03/09/24 08:44 Results Reviewed Results Reviewed: Laboratory Last Values Urine pH (Auto) 6.0 03/09/24 08:44 Specific [place] (Auto) 10.25 03/09/24 08:44 Urine Protein (Auto) 15 mg/dL 03/09/24 08:44 Glucose (UA)(Auto) 0 mg/dL 03/09/24 08:44 Urine Ketones (Auto) Positive 03/09/24 08:44 Urine Blood (Auto) 200 King/uL 03/09/24 08:44 Urine Nitrite (Auto) Negative 03/09/24 08:44 Urine Bilirubin (Auto) 0 mg/dL 03/09/24 08:44 Urine Urobilinogen (Auto) 0.2 mg/dL 03/09/24 08:44 Leukocyte Esterase (Auto) 70 Pal/uL 03/09/24 08:44 Assessment & Plan Assessment & Plan (1) Prostate cancer: Comment: MRI significant disease Code(s): C61 - Malignant neoplasm of prostate Category: Medical (2) Elevated PSA: Code(s): R97.20 - Elevated prostate specific antigen [PSA] Category: Medical Plan Lotrisone cream, bone scan, PSA Orders: Orders PSA,Total (Free>4and<10) Today C61 - Malignant neoplasm of prostate, R97.20 - Elevated prostate specific antigen [PSA] AMB Urinalysis Automated Today Z13.9 - Encounter for screening, unspecified NM bone scan whole body Today R97.20 - Elevated prostate specific antigen [PSA] Medications: New clotrimazole-betamethasone 1-0.05 % 1 appl topical BID 2 weeks 45 grams 1RF apply to affected area on penis Patient Instructions: The patient had an opportunity to ask questions regarding treatment plan. The patient expressed understanding and agreement with the above treatment plan. The patient is aware they should contact our office by phone for worsening of their current condition or the appearance of new symptoms. Compliance is encouraged with any medications and followup testing that is ordered. It is a privilege to be allowed the opportunity to participate in the urologic care of your patient. If you have any questions or concerns regarding treatment for the above conditions please do not hesitate to contact me. The office telephone contact is [phone]. This note is constructed in part using voice recognition software. While every effort has been made to ensure accuracy manager corporate responsibility errors may have been included. Yours sincerely, Alvaro Almendarez MD Coding Level of Care Code Est Pt Level 4 (14372) Diagnoses Prostate cancer C61 Elevated PSA R97.20
== END 2024-03-09 09:21 | disposition home or self-care (01) ==
PROVIDERS: PCP Internal Medicine; Referring Provider Internal Medicine; Visit Provider Urology
DX: C61 Malignant neoplasm of prostate (principal); R97.20 Elevated prostate specific antigen [PSA]; Z13.9 Encounter for screening, unspecified
CPT/HCPCS: 99214

== ENCOUNTER 2024-03-09 08:27 | Outpatient (REF) | payer OTHER, SELFPAY ==
[2024-03-09 12:38] LABS: PSA,Total (Free>4and<10) > 1000.00 ng/mL (0.00-4.00)
== END 2024-03-09 08:28 | disposition home or self-care (01) ==
LOC: HO.LAB 08:27
PROVIDERS: PCP Internal Medicine; Visit Provider Urology
DX: Z12.5 Encounter for screening for malignant neoplasm of prostate (principal); C61 Malignant neoplasm of prostate; R97.20 Elevated prostate specific antigen [PSA]
CPT/HCPCS: 36415; 81003; 84153; 99212

== ENCOUNTER 2024-06-01 09:45 | Outpatient (AMB) | payer OTHER, SELFPAY ==
--- NOTE | 2024-06-01 09:51 | A.OFFVIS_ITS ---
Intake Visit Reasons: VT Intake Note: Patient is present for VT Urology Medication:CLOTRIMAZOLE-BETAMETHASONE Antibiotic Allergy:NONE Blood Thinner:NONE Plastic Molding Operator Required: No Allergies No Known Allergies Allergy (Verified 06/01/24 09:52) HPI Comments Details: 06/01/24--Luis Armando is here with his daughter Faith. He states that about 5 weeks ago he fell and was evaluated at [facility] a Jarrett catheter was placed. He was sent to Oncology and states that he has received a Lupron shot and Casodex for 28 days. He refuses to continue to take the Casodex. The patient failed Voiding trial today. 16 fr jarrett placed. FU in 3 weeks for nurse visit and repeat voiding trial. Review of chart: 03/09/24--Luis Armando is a 73 year old male who is here for evaluation: Pt in denial of diagnosis of prostate cancer as he states not conclusively diagnosed. He has stopped prostate meds, c/o's of back pain, and jaw pain, was in ED on 01/28/24--I reviewed CTABD/Pelvis--lymph adenapathy, and lytic lesions. Will get bone scan and PSA. He c/o's of penile redness. Will order lotrisone cream. Exam: Prostate - hard nodules, penile glans, erythermatous changes noted 07/10/22--Luis Armando is a pleasant male. He is patient of Dr. Domenic Montero. 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 At this point not interested in further diagnosis all therapy Confirmed that finasteride and bicalutamide [facility] Appears to have injured knee Requesting pain medication Naprosyn prescription provided Zoon balanitis unresolved with topical steroids Trial tacrolimus ointment Prostate cancer---At this point he would not like to make a further appointment until checks with [facility] doctor 01/28 MRI with PI-RADS 5 extensive disease right base with local invasion--PSA 06/30 62 Erectile dysfunction-Sildenafil 100 mg Elevated PSA-Followed with Urology Group PSA 02/24 14, 04/27 22, 07/28 19, 11/27 28 Offered biopsy on multiple occasions ISAIAH with firm right base Zoon Balanitis Uncircumcised Non responsive to topical steroid 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 [facility] Medical History Elevated PSA Scrotal abscess Balanitis Review of Systems Const All systems reviewed & are unremarkable except as noted in HPI and below Reports no additional complaints Eyes Reports no additional complaints ENT Reports no additional complaints Card Reports no additional complaints Resp Reports no additional complaints GI Reports no additional complaints Reports as per HPI Musc Reports no additional complaints Skin/Breast Reports system reviewed and no additional complaints, except as documented Neuro Reports no additional complaints Psych Reports no additional complaints Endo Reports no additional complaints Magnus/Lymph Reports no additional complaints Aller/Immun Reports no additional complaints Office Procedures Bladder/Catheter Procedure Details: Patient presents to office for VT. Per Dr. Bhakta try to instill up to 300mls of fluid if patient tolerates it. Able to instill 180mls of sterile water through catheter before patient stated that he could not tolerate any more fluid. 14fr jarrett catheter removed, patient tolerated well. Patient able to void approximately 30mls. 16fr 200 [id number]-[employer] of Bladder Procedure code (CPT) selection complete Assessment & Plan Assessment & Plan (1) Prostate cancer: Comment: MRI significant disease Code(s): C61 - Malignant neoplasm of prostate Category: Medical (2) Elevated PSA: Code(s): R97.20 - Elevated prostate specific antigen [PSA] Category: Medical (3) Urinary retention: Code(s): R33.9 - Retention of urine, unspecified Category: Medical Plan The patient is following with Oncology receiving hormone therapy. Orders: Orders AMB Bladder/Catheter Procedure 06/01/24 C61 - Malignant neoplasm of prostate, N40.1 - Benign prostatic hyperplasia with lower urinary tract symptoms, N13.8 - Other obstructive and reflux uropathy Medications: New finasteride 5 mg PO DAILY 30 tabs 1RF 30 days tamsulosin 0.4 mg PO BEDTIME 30 caps 1RF 30 days finasteride . 5 mg PO DAILY 30 tabs 1RF 30 days tamsulosin . 0.4 mg PO BEDTIME 30 caps 1RF 30 days tamsulosin . 0.4 mg PO BEDTIME 30 caps 1RF 30 days finasteride . 5 mg PO DAILY 30 tabs 1RF 30 days Refilled bicalutamide 50 mg PO DAILY 90 tabs 1RF 90 days C61 - Malignant neoplasm of prostate Patient Instructions: The patient had an opportunity to ask questions regarding treatment plan. The patient expressed understanding and agreement with the above treatment plan. The patient is aware they should contact our office by phone for worsening of their current condition or the appearance of new symptoms. Compliance is encouraged with any medications and followup testing that is ordered. It is a privilege to be allowed the opportunity to participate in the urologic care of your patient. If you have any questions or concerns regarding treatment for the above conditions please do not hesitate to contact me. The office telephone contact is [phone]. This note is constructed in part using voice recognition software. While every effort has been made to ensure accuracy dog food dough mixer errors may have been included. Yours sincerely, Alvaro Almendarez MD Coding Level of Care Code Est Pt Level 4 (80132) Diagnoses Prostate cancer C61 Elevated PSA R97.20 Urinary retention R33.9 CPT Codes Bladder/Catheter Procedure - CPT: 25344-Stvfotccfd of Bladder ([id number])
== END 2024-06-01 11:49 | disposition home or self-care (01) ==
PROVIDERS: PCP Internal Medicine; Visit Provider Urology
DX: C61 Malignant neoplasm of prostate (principal); R97.20 Elevated prostate specific antigen [PSA]; R33.9 Retention of urine, unspecified
CPT/HCPCS: 51700; 99214

== ENCOUNTER → 2024-06-01 09:45 | Outpatient (BNVA) | payer OTHER, SELFPAY | PROVIDERS: PCP Internal Medicine; Visit Provider Urology | DX: C61 Malignant neoplasm of prostate (principal); N40.1 Benign prostatic hyperplasia with lower urinary tract symptoms; R33.8 Other retention of urine; N13.8 Other obstructive and reflux uropathy; R97.20 Elevated prostate specific antigen [PSA] | CPT/HCPCS: 51700; 99212 ==

== ENCOUNTER → 2024-06-24 10:17 | Outpatient (BNVA) | payer OTHER, SELFPAY | PROVIDERS: PCP Internal Medicine; Visit Provider Urology | DX: N40.1 Benign prostatic hyperplasia with lower urinary tract symptoms (principal); N13.8 Other obstructive and reflux uropathy; C61 Malignant neoplasm of prostate; Z46.6 Encounter for fitting and adjustment of urinary device; Z96.0 Presence of urogenital implants | CPT/HCPCS: 51701; 51798 ==